=== PATIENT | female | born 1975 | race Asian ===

== ENCOUNTER 2018-12-05 10:07 | Outpatient (CLI) | payer BC ==
[~2018-12-05 10:07] MED LIST: Gadobenate Dimeglumine 529 MG/1 ML (20ML VIAL) ONE
--- NOTE | 2018-12-05 13:14 | MRI ---
MRI OF THE BRAIN WITHOUT AND WITH CONTRAST: HISTORY: Vertigo. Headache, dizziness, tingling on the right side for months. TECHNIQUE: Multiplanar, multisequence MR images were obtained in the brain without and with IV contrast. FINDINGS: The brain demonstrates normal signal intensity on all obtained sequences. No restricted diffusion or abnormal enhancement is seen. There is no evidence of hydrocephalus, intracranial hemorrhage, or ex traaxial fluid collection. The expected flow voids are present. The corpus callosum, pituitary, and craniocervical junction are unremarkable. IMPRESSION: No evidence of acute intracranial abnormality. POS: [facility]
== END 2018-12-05 10:08 | disposition home or self-care (01) ==
LOC: SCSMRI 10:07
PROVIDERS: ATTEND Psychiatry & Neurology Neurology
DX: R42 Dizziness and giddiness (principal)
CPT/HCPCS: 70553

== ENCOUNTER 2022-11-08 09:32 | Outpatient (CLI) | payer BC | END 2022-11-08 09:33 | disposition home or self-care (01) | LOC: SCSRAD 09:32 | PROVIDERS: ATTEND Family Medicine | DX: M54.2 Cervicalgia (principal); M47.812 Spondylosis without myelopathy or radiculopathy, cervical region; M25.78 Osteophyte, vertebrae; M26.24 Reverse articulation | CPT/HCPCS: 36415; 72052; 80053; 80061; 81001; 82306; 83036; 84439; 84443; 85025 ==